=== PATIENT | male | born 1975 | race Caucasian/White ===

== ENCOUNTER 2017-07-15 22:57 | Emergency (ER) | payer OTHER | END 2017-07-16 01:04 | disposition home or self-care (01) | LOC: FER 22:57 | DX: M76.9 Unspecified enthesopathy, lower limb, excluding foot (principal); R03.0 Elevated blood-pressure reading, without diagnosis of hypertension; Z87.442 Personal history of urinary calculi; Z98.890 Other specified postprocedural states; Z79.899 Other long term (current) drug therapy | CPT/HCPCS: 73610; 99283 ==